=== PATIENT | female | born 1935 | race Caucasian/White ===

== ENCOUNTER 2016-08-09 15:18 | Emergency (ER) | payer OTHER ==
[2016-08-09 15:28] VITALS: TEMP 97.5
[2016-08-09 15:56] LABS: % IMMATURE GRANULYOCYTES 0.4 % (0.0-1.1); ABSOLUTE IMMATURE GRANULOCYTES 0.03 10^3/uL (0.00-0.10); ADD DIFF? NO; ADD MORPH? NO; ADD SCAN? NO; ATYPICAL LYMPHOCYTE FLAG 0 (0-99); FRAGMENT RBC FLAG 0 (0-99); HEMATOCRIT 45.6 % (38.0-47.0); HEMOGLOBIN 15.5 g/dL (12.6-16.3); LEFT SHIFT FLG 0 (0-99); LIPEMIA HEMOLYSIS FLAG 90 (0-99); MEAN CELL HEMOGLOBIN 30.1 pg (27.9-34.1); MEAN CELL VOLUME 88.5 fL (81.5-99.8); MEAN PLATELET VOLUME 11.3 fL (8.7-11.7); PLATELET CLUMPS FLAG 0 (0-99); PLATELET COUNT 139 10^3/uL (150-400); RED BLOOD CELL COUNT 5.15 10^6/uL (4.18-5.33); RED CELL DISTRIBUTION WIDTH 12.5 % (11.5-15.2)
--- NOTE | 2016-08-09 16:00 | CPEKG ---
Heart Rate: 81 RR Interval: 741 P-R Interval: 204 QRSD Interval: 72 QT Interval: 372 QTC Interval: 432 QRS [place]: -19 T Wave [place]: 58 EKG Severity - ABNORMAL ECG - EKG Impression: INCOMPLETE ANALYSIS DUE TO MISSING DATA IN PRECORDIAL LEAD(S) EKG Impression: ATRIAL-PACED RHYTHM EKG Impression: BORDERLINE LEFT AXIS DEVIATION EKG Impression: BORDERLINE T ABNORMALITIES, ANT-LAT LEADS Electronically Signed By: Abdi Lozano 09-Aug-2016 19:46:24
[2016-08-09 16:17] LABS: ANION GAP 10 mEq/L (8-16); CARBON DIOXIDE 27 mEq/l (22-31); CHLORIDE 104 mEq/L (97-110); CREATININE 0.9 mg/dL (0.6-1.0); GLOMERULAR FILTRATION RATE > 60; GLUCOSE 99 mg/dL (70-100); POTASSIUM 4.1 mEq/L (3.5-5.2); SODIUM 141 mEq/L (134-144)
[2016-08-09 16:29] LABS: TROPONIN I < 0.012 ng/mL (0-0.034)
--- NOTE | 2016-08-09 16:30 | DX ---
Chest, Two Views at 1540 hours History: Shortness of breath, chest pain. Comparison: April 2016 Findings: Cardiac silhouette is within normal range. Left chest wall bipolar pacemaker without pneumo thorax. Bilateral calcified breast augmentation implants. Minimal scarring in the lingula again noted . No pneumonia, congestive heart failure, pleural effusion, or pneumothorax. Impression: No definite pneumonia.
[2016-08-09 18:03] LABS: COLOR YELLOW; LEUKOCYTE ESTERASE,URINE NEGATIVE (NEGATIVE); NITRITE,URINE NEGATIVE (NEGATIVE)
--- NOTE | 2016-08-09 18:30 | EDPHY ---
HPI/HX/ROS/PE/MDM Narrative: Chief complaint: Chest tightness and fatigue HPI: 81-year-old female states that she developed chest tightness at rest last night at about 10:30 his persisted overnight and into this morning. At worst it was a 4/10. Patient states discomfort resolved late in the morning. She has been pain-free for the last 6-7 hours. She has had some general fatigue. She has a history of Alzheimer's disease which is mild and is in her care of her . No recent illness. No fevers or chills. No shortness of breath. No nausea or vomiting. No urinary symptoms. She has no abdominal pain. ROS: 10 point Review of Systems is negative except as noted in the HPI. Physical exam: Gen: Awake, Alert, No Distress HEENT: Nose: no rhinorrhea Eyes: PERRLA, EOMI Mouth: Moist mucosa Neck: Supple, no JVD Chest: nontender, lungs clear to auscultation Heart: S1, S2 normal, no murmur Abd: Soft, non-tender, no guarding Back: no CVA tenderness, no midline tenderness Ext: no edema, non-tender Skin: no rash Neuro: CN II-XII intact, Sensation grossly intact, Strength 5/5 in bilateral upper and lower extremities ED Course: ECG: A atrial paced rhythm with a rate of 81. No acute ST or T-wave changes. Impression: 81-year-old female presenting with chest tightness last night which has resolved. Her troponin is 0. She has been symptom free for the last several hours. CBC, troponin, chemistry, chest x-ray, and urinalysis are all unremarkable. She is ambulating at her baseline with assistance in the emergency department. She has been symptom free during her emergency department stay. I will be discharging her with follow up with Dr. Wilson for an outpatient stress test at her primary care physician. She will return for any concerns or symptoms. - Data Points Laboratory Results: Laboratory Results 08/09/16 15:49 08/09/16 15:49 08/09/16 08/09/16 17:50 15:49 WBC 8.22 10^3/uL (3.80-9.50) RBC 5.15 10^6/uL (4.18-5.33) Hgb 15.5 g/dL (12.6-16.3) Hct 45.6 % (38.0-47.0) MCV 88.5 fL (81.5-99.8) MCH 30.1 pg (27.9-34.1) MCHC 34.0 g/dL (32.4-36.7) RDW 12.5 % (11.5-15.2) Plt Count 139 L 10^3/uL (150-400) MPV 11.3 fL (8.7-11.7) Neut % (Auto) 72.3 % (39.3-74.2) Lymph % (Auto) 13.3 L % (15.0-45.0) [place] % (Auto) 10.5 % (4.5-13.0) Eos % (Auto) 3.0 % (0.6-7.6) Baso % (Auto) 0.5 % (0.3-1.7) Nucleat RBC Rel Count 0.0 % (0.0-0.2) Absolute Neuts (auto) 5.95 10^3/uL (1.70-6.50) Absolute Lymphs (auto) 1.09 10^3/uL (1.00-3.00) Absolute Monos (auto) 0.86 H 10^3/uL (0.30-0.80) Absolute Eos (auto) 0.25 10^3/uL (0.03-0.40) Absolute Basos (auto) 0.04 10^3/uL (0.02-0.10) Absolute Nucleated RBC 0.00 10^3/uL (0-0.01) Immature Gran % 0.4 % (0.0-1.1) Immature Gran # 0.03 10^3/uL (0.00-0.10) Sodium 141 mEq/L (134-144) Potassium 4.1 mEq/L (3.5-5.2) Chloride 104 mEq/L (97-110) Carbon Dioxide 27 mEq/l (22-31) Anion Gap 10 mEq/L (8-16) BUN 17 mg/dL (7-23) Creatinine 0.9 mg/dL (0.6-1.0) Estimated GFR > 60 Glucose 99 mg/dL (70-100) Calcium 9.0 mg/dL (8.5-10.4) Troponin I < 0.012 ng/mL (0-0.034) Urine Color YELLOW Urine Appearance CLEAR Urine pH 5.0 (5.0-7.5) Ur Specific [place] 1.019 (1.002-1.030) Urine Protein NEGATIVE (NEGATIVE) Urine Ketones NEGATIVE (NEGATIVE) Urine Blood NEGATIVE (NEGATIVE) Urine Nitrate NEGATIVE (NEGATIVE) Urine Bilirubin NEGATIVE (NEGATIVE) Urine Urobilinogen NEGATIVE EU (0.2-1.0) Ur Leukocyte Esterase NEGATIVE (NEGATIVE) Urine Glucose NEGATIVE (NEGATIVE) General Time Seen by Provider: 08/09/16 15:53 Initial Vital Signs: Initial Vital Signs Temperature (C) 36.4 C 08/09/16 15:23 Heart Rate 85 08/09/16 15:23 Respiratory Rate 16 08/09/16 15:23 Blood Pressure 125/101 H 08/09/16 15:23 O2 Sat (%) 90 L 08/09/16 15:23 O2 Delivery Mode Room Air O2 (L/minute) 2 Allergies/Adverse Reactions: No Known Allergies Allergy (Unverified 05/31/10 11:48) Home Medications: Medication Instructions Recorded "Whole List" 05/31/10 ARICEPT 05/31/10 NAMENDA 05/31/10 PEPCID 05/31/10 PROVIGIL 05/31/10 Prozac 05/31/10 oxyCODONE/APAP 5/325 [Percocet 0.5 - 1 tab PO .Q 4 - 6 HRS #20 tab 05/31/10 5/325] Cozaar 25 mg (*) 04/27/16 Levothyroxine 04/27/16 Departure - Departure Disposition: Home, Routine, Self-Care Clinical Impression: Chest pain Condition: Good Instructions: Chest Pain (ED) Additional Instructions: Follow up with Dr. Wilson for an outpatient stress test. Follow up with her primary care physician in 2-3 days for re-evaluation. Return to the emergency depart for increasing chest pain, shortness of breath, fevers, chills, nausea, vomiting, or any other concerns. Referrals: Kalpana Dolan [employer] OPERATOR [Primary Care Provider] - As per Instructions
[2016-08-09 18:36] VITALS: BP 132/72; PULSE 82; RESP 18; O2SAT 92
== END 2016-08-09 18:40 | disposition home or self-care (01) ==
DX: R07.9 Chest pain, unspecified (principal)

== ENCOUNTER → 2016-10-25 | Outpatient (CLI) | payer OTHER | LOC: BMCIMAGING 10:52 | PROVIDERS: ATTEND Internal Medicine | DX: Z13.820 Encounter for screening for osteoporosis (principal); M81.0 Age-related osteoporosis without current pathological fracture ==